=== PATIENT | female | born 1990 | race Caucasian/White ===

== ENCOUNTER 2019-08-18 12:52 | Inpatient (IN) | payer OTHER ==
[~2019-08-18] VITALS: Ht 157.5 cm; Wt 71.5 kg
--- NOTE | 2019-08-18 13:29 | NUR ---
PT A&OX4, RESP EVEN & UNLABORED, SPEECH CLEAR, SKIN WNL. C/O RT SIDED ABD PAIN - STARTED 0730 TODAY. + NAUSEA, VOMITED THIS AM. IBUPROFEN AT 0930. LAST BM 0500 TODAY. DENIES DIARRHEA. LAST ORAL INTAKE: 2 BITES OF COOKIE AT 1200, BANANA AT 0600. LMP: 3 WKS AGO. SPOUSE IN ROOM. PT AWARE OF NPO STATUS
[2019-08-18] MEDS ORDERED: SODIUM CHLORIDE FLUSH 10ML SYR IVF ONE (13:30)
[2019-08-18] MEDS ORDERED: ONDANSETRON 2MG/ML, 2ML IVPush ONE ×2 (13:30→17:30)
[2019-08-18] MEDS ORDERED: MORPHINE SULFATE 4 MG/ML, 1ML IVPush PRN (13:30)
[2019-08-18 13:32] LABS: BASOPHILS # (AUTO) 0.02 x10^3/uL (0-0.1); BASOPHILS % (AUTO) 0 % (0-1); EOSINOPHILS # (AUTO) 0.18 x10^3/uL (0-0.4); EOSINOPHILS % (AUTO) 2 % (1-7); LYMPHOCYTES # (AUTO) 0.99 x10^3/uL (1-3.4); LYMPHOCYTES % (AUTO) 8 % (22-44); MD NO; MEAN CORPUSCULAR HGB CONC 34.5 g/dL (32.4-35.8); MEAN CORPUSCULAR VOLUME 89.9 fL (80-100); MEAN PLATELET VOLUME 8.3 fL (7.4-10.4); MONOCYTES # (AUTO) 0.32 x10^3/uL (0.2-0.8); MONOCYTES % (AUTO) 3 % (2-9); NEUTROPHILS # (AUTO) 10.55 x10^3/uL (1.8-6.8); NEUTROPHILS % (AUTO) 88 % (42-75); PLATELET COUNT 218 x10^3/uL (130-400); RED BLOOD COUNT 4.45 x10^6/uL (3.82-5.3); RED CELL DISTRIBUTION WIDTH 12.5 % (9.6-15.2)
[2019-08-18] MEDS ORDERED: ETHI1TAB26 PO (13:33)
[2019-08-18] MEDS ORDERED: MORPHINE SULFATE 4 MG/ML, 1ML ONE (13:42)
[2019-08-18] MEDS ORDERED: ONDANSETRON 2MG/ML, 2ML ONE ×2 (13:42→17:26)
[2019-08-18 13:45] LABS: ALANINE AMINOTRANSFERASE 27 U/L (12-78); ALBUMIN 3.8 g/dL (3.4-5.0); ANION GAP 9 mmol/L (5-15); CHLORIDE 106 mmol/L (98-107); CREATININE 0.95 mg/dL (0.55-1.02)
[2019-08-18 13:49] LABS: ALKALINE PHOSPHATASE 67 U/L (45-117); BILIRUBIN,TOTAL 0.4 mg/dL (0.2-1.0); TOTAL PROTEIN 7.8 g/dL (6.4-8.2)
--- NOTE | 2019-08-18 13:50 | NUR ---
ZOFRAN AND MORPHINE GIVEN PER EMAR
[2019-08-18] MEDS ORDERED: OMNIPAQUE 350 MG/ML, 100ML BOTTLE ONE (14:31)
--- NOTE | 2019-08-18 15:42 | NUR ---
ROCK WINN BS TO DISCUSS POC. PT TO BE ADMITTED
--- NOTE | 2019-08-18 15:44 | NUR ---
DR MARILEE GARCÍA TO DISCUSS POC
[2019-08-18] MEDS ORDERED: SODIUM CHLORIDE 0.9% 1,000 ML IV ONE (15:54)
[2019-08-18] MEDS ORDERED: SODIUM CHLORIDE FLUSH 10ML SYR IVF PRN (16:00)
[2019-08-18] MEDS ORDERED: CEFOTETAN PMX 1GM/50ML 50 ML IV ONE (16:00)
--- NOTE | 2019-08-18 16:00 | NUR ---
HOUSE-WIDE CEFOTAN SHORTAGE (PER OMNICELL); WILL CONTACT PHARMACY
--- NOTE | 2019-08-18 16:30 | NUR ---
NS DYLLAN; IV SITE PATENT. CEFOTETAN DYLLAN; INFUSING AT 100 ML/HR VIA PUMP. DR BRANDON NOW BS
--- NOTE | 2019-08-18 16:44 | NUR ---
PT REPORT TO BREAK RN: ALDEN. PT CARE TRANSFERRED.
--- NOTE | 2019-08-18 16:59 | NUR ---
BREAK RN NOTE: PT RECLINED IN BED, RESPIRATIONS EVEN AND UNLABORED ON RA. IV ABX COMPLETED. NS STILL INFUSING. PT REQUESTS MORE NAUSEA AND DIFFERENT PAIN MEDS. NOTE IN FOR ERPA. SIDE RAILS UP, CALL LIGHT IN REACH.
[2019-08-18] MEDS ORDERED: HYDROmorphone 1 MG/ML, 1ML INJ ONE ×3 (17:25→20:39)
[2019-08-18] MEDS ORDERED: MEPERIDINE/PF 25MG/ML,1ML IVPush PRN (17:30)
[2019-08-18] MEDS ORDERED: LABETALOL 5MG/ML, 20ML IV PRN (17:30)
[2019-08-18] MEDS ORDERED: PROMETHAZINE 25 MG/ML, 1ML IV PRN (17:30)
[2019-08-18] MEDS ORDERED: ACETAMINOPHEN 325 MG TABLET PO PRN (17:30)
[2019-08-18] MEDS ORDERED: hydrALAzine 20 MG/ML, 1ML IV PRN (17:30)
[2019-08-18] MEDS ORDERED: OXYcodone 5 MG/5 ML ORAL.SOL UDC PO PRN (17:30)
[2019-08-18] MEDS ORDERED: HYDROmorphone 2 MG/ML, 1ML IVPush PRN (17:30)
[2019-08-18] MEDS ORDERED: FENTANYL PF 100 MCG/2ML IV PRN (17:30)
[2019-08-18] MEDS ORDERED: EPHEDRINE 50 MG/ML, 1ML IVPush PRN (17:30)
[2019-08-18] MEDS ORDERED: ONDANSETRON 2MG/ML, 2ML IV PRN (17:30)
--- NOTE | 2019-08-18 17:44 | NUR ---
CEFOTETAN WAS COMPLETED; DC'D PER BREAK RN. NS INFUSING AT 125 ML/HR VIA GRAVITY; IV SITE PATENT. PT REPORTS DECREASED PAIN, MINOR NAUSEA.
[2019-08-18] MEDS ORDERED: MIDAZOLAM 1 MG/ML, 2ML ONE (17:46)
[2019-08-18] MEDS ORDERED: FENTANYL PF 100 MCG/2ML ONE ×2 (17:46→19:46)
[2019-08-18] MEDS ORDERED: SUCCINYLCHOLINE 20 MG/ML, 10ML ONE (17:47)
[2019-08-18] MEDS ORDERED: ROCURONIUM 10MG/ML,5ML ONE (17:47)
[2019-08-18] MEDS ORDERED: PROPOFOL 10 MG/ML, 20ML ONE (17:47)
[2019-08-18] MEDS ORDERED: LIDOCAINE-MPF 2% ,5ML ONE ×2 (17:47→19:26)
--- NOTE | 2019-08-18 17:54 | NUR ---
PT REPORT TO ALDEN ESTEVEZ FOR ROOM 448
[2019-08-18] MEDS ORDERED: HYDROmorphone 1 MG/ML, 1ML INJ IVPush PRN (18:00)
[2019-08-18 18:15] VITALS: BP 107/71
--- NOTE | 2019-08-18 18:17 | NUR ---
LUPE FROM SURGERY CALLED FOR PT REPORT; REPORT GIVEN. SURGERY WILL SEND TECH FOR PT.
--- NOTE | 2019-08-18 18:19 | NUR ---
PT NOT IN ROOM; TECH TOOK PT TO FLOOR; SURGERY NOTIFIED.
[2019-08-18] MEDS ORDERED: EPINEPHRINE 1 MG/ML, 1ML ONE (18:34)
[2019-08-18] MEDS ORDERED: BUPIVACAINE/PF 0.5% ONE (18:34)
[2019-08-18] MEDS ORDERED: GLYCOPYRROLATE 0.2MG/1ML, 5ML ONE (19:17)
[2019-08-18] MEDS ORDERED: CEFOTETAN PMX 2GM/50ML 50 ML IVPB ONE (19:17)
[2019-08-18] MEDS ORDERED: NEOSTIGMINE 1 MG/ML, 10ML ONE (19:17)
[2019-08-18] MEDS ORDERED: KETOROLAC 30 MG/1 ML ONE (19:26)
[2019-08-18] MEDS ORDERED: DEXAMETHASONE 4 MG/ML, 1ML ONE ×2 (19:26)
[2019-08-18] MEDS ORDERED: PROMETHAZINE 25 MG/ML, 1ML ONE (20:17)
[2019-08-18] MEDS: HYDROmorphone 1 MG/ML, 1ML INJ IVPush PRN ×4 (20:18→20:44)
[2019-08-18 21:20] VITALS: BP 111/71
[2019-08-18] MEDS ORDERED: POTASSIUM CHLORIDE 20 MEQ in D5%-0.45% NACL 1,000 ML IV SCH (21:29)
[2019-08-18] MEDS ORDERED: ONDANSETRON 2MG/ML, 2ML IVPush PRN (21:30)
[2019-08-18] MEDS ORDERED: OXYcodone/APAP 5/325MG TABLET PO PRN (21:30)
[2019-08-18] MEDS ORDERED: DIPHENHYDRAMINE 50 MG/ML, 1ML ONE (22:15)
[2019-08-18] MEDS ORDERED: DIPHENHYDRAMINE 50 MG/ML, 1ML IVPush ONE (22:30)
[2019-08-18] MEDS ORDERED: HYDROmorphone 1 MG/ML, 1ML INJ IV ONE (22:30)
[2019-08-19 00:03] VITALS: BP 96/62
[2019-08-19] MEDS ORDERED: OXYC-302 PO (01:48)
[2019-08-19 03:37] VITALS: BP 96/52
[2019-08-19 06:00] VITALS: BP 104/68
== END 2019-08-19 06:08 | disposition home or self-care (01) | DRG 343 ==
LOC: ED 16:25 → EDIP 16:52 → 4NE 18:15
PROVIDERS: ADMIT Surgery; ATTEND Surgery
PROC: 0DTJ4ZZ Resection of Appendix, Percutaneous Endoscopic Approach (ICD-10-PCS; principal; 2019-08-18 19:30)
DX: K35.30 Acute appendicitis with localized peritonitis, without perforation or gangrene (principal)
CPT/HCPCS: 96365; 96375; 99285; J3490; S0020; 88304; J0171; J1100; J1170; J1885; J2250; J2405; J2550; J2704; J2710; J3010; J3480; Q9967; J0330; J1200; J2270; J7030